=== PATIENT | female | born 1955 | race Caucasian/White ===

== ENCOUNTER → 2017-05-04 | Outpatient (CLI) | payer OTHER ==
[~2017-05-04] MED LIST: ALBUAER3 IN; ALEN70TA55 PO; ALPR0.25 PO; ASCO100076 PO; ASPI81TA27 PO; B-COTAB76 OR; CALCCHW17 OR; CHOL100079 OR
== END | disposition home or self-care (01) ==
LOC: LAB 14:09
PROVIDERS: ATTEND Surgery
DX: Z02.1 Encounter for pre-employment examination (principal)
CPT/HCPCS: 36415; 86706; 86735; 86762; 86765; 86787

== ENCOUNTER → 2018-01-19 | Outpatient (CLI) | payer OTHER, BC ==
[2018-01-19 10:04] LABS: Albumin 3.7 g/dL (3.4-5.0); BUN/Creatinine Ratio 16.7; Bilirubin, Total 0.4 mg/dL (0.2-1.0); Calcium 9.3 mg/dL (8.5-10.1); Potassium 4.1 mmol/L (3.5-5.1); Total Protein 7.3 g/dL (6.4-8.2)
== END | disposition home or self-care (01) ==
LOC: LAB 08:28
PROVIDERS: ATTEND Internal Medicine
DX: J44.9 Chronic obstructive pulmonary disease, unspecified (principal); R79.89 Other specified abnormal findings of blood chemistry
CPT/HCPCS: 36415; 80053; 80061

== ENCOUNTER → 2019-07-11 | Outpatient (CLI) | payer BC ==
[~2019-07-11] MED LIST changes: +ALEN1TAB32 PO; -ALEN70TA55 PO; +ASPI-404 PO; -ASPI81TA27 PO
[2019-07-11 08:36] LABS: Basophils # (auto) 0.1 uL; Basophils % (auto) 1.1 % (0.0-2.0); Eosinophils # (auto) 0.1 uL; Eosinophils % (auto) 2.3 % (0.0-7.0); Hematocrit 42.6 % (36.0-46.0); Hemoglobin 14.7 g/dL (12.2-16.2); Lymphocytes # (auto) 2.1 uL; Lymphocytes % (auto) 38.4 % (10.0-50.0); Mean Corpuscular Hemoglobin 31.3 pg (28.0-32.0); Mean Corpuscular Hgb Conc. 34.5 g/dL (32.0-36.0); Mean Corpuscular Volume 90.9 fL (80.0-100.0); Monocytes # (auto) 0.3 uL; Neutrophils # (auto) 2.9 uL; Neutrophils % (auto) 52.2 % (37.0-80.0); Nucleated Red Blood Cells % 0.1 %; Platelet Count (auto) 262 10^3/uL (140-450); Red Blood Cells 4.69 10^6/uL (4.0-5.20); Red Cell Distribution Width 14.7 % (11.8-14.3); White Blood Cell 5.6 10^3/uL (4.4-10.8)
[2019-07-11 08:42] LABS: Urine Bacteria FEW /hpf (None Seen); Urine Blood 1+ /uL (Negative); Urine Specific Gravity 1.009 (1.001-1.035); Urine WBC 1 /hpf (0 - 5)
[2019-07-11 08:57] LABS: Albumin 3.7 g/dL (3.4-5.0); Calcium 8.8 mg/dL (8.5-10.1); Potassium 3.9 mmol/L (3.5-5.1)
[2019-07-11 09:01] LABS: BUN/Creatinine Ratio 11.6; Bilirubin, Total 0.5 mg/dL (0.2-1.0)
== END | disposition home or self-care (01) ==
LOC: LAB 08:16
PROVIDERS: ATTEND Internal Medicine
DX: J44.9 Chronic obstructive pulmonary disease, unspecified (principal)
CPT/HCPCS: 36415; 80053; 80061; 81001; 84439; 84443; 85025; 85652

== ENCOUNTER → 2020-04-15 | Outpatient (CLI) | payer BC ==
[~2020-04-15] MED LIST changes: -ASPI-404 PO; +ASPI-543 PO
[2020-04-15 15:28] LABS: Basophils # (auto) 0 10 ^3/uL (0-0.2); Basophils % (auto) 0.5 % (0.0-2.0); Eosinophils # (auto) 0.1 10 ^3/uL (0-0.8); Hematocrit 41.8 % (36.0-46.0); Hemoglobin 14.1 g/dL (12.2-16.2); Lymphocytes # (auto) 2.8 10 ^3/uL (0.4-5.4); Lymphocytes % (auto) 44.9 % (10.0-50.0); Mean Corpuscular Hemoglobin 30.8 pg (28.0-32.0); Mean Corpuscular Hgb Conc. 33.7 g/dL (32.0-36.0); Mean Corpuscular Volume 91.6 fL (80.0-100.0); Monocytes # (auto) 0.5 10 ^3/uL (0-1.3); Monocytes % (auto) 7.7 % (0.0-12.0); Neutrophils # (auto) 2.8 10 ^3/uL (1.6-8.6); Neutrophils % (auto) 44.9 % (37.0-80.0); Nucleated Red Blood Cells % 0.1 %; Platelet Count (auto) 269 10^3/uL (140-450); Red Blood Cells 4.56 10^6/uL (4.0-5.20); Red Cell Distribution Width 14.3 % (11.8-14.3); White Blood Cell 6.2 10^3/uL (4.4-10.8)
[2020-04-15 15:36] LABS: Albumin 3.7 g/dL (3.4-5.0); Calcium 8.8 mg/dL (8.5-10.1); Potassium 3.3 mmol/L (3.5-5.1)
[2020-04-15 15:40] LABS: Bilirubin, Total 0.3 mg/dL (0.2-1.0); Total Protein 7.4 g/dL (6.4-8.2)
[2020-04-16 07:06] LABS: Immunoglobulin G, Serum 890 mg/dL (586-1602)
[2020-04-17 09:23] LABS: Hepatitis B Surface Antibody Negative
[2020-04-17 11:37] LABS: Hepatitis B Core IgM Negative; Hepatitis B Core Total AB Negative; Hepatitis B Surface Antigen Negative (Negative); Hepatitis C Antibody Negative (Negative)
== END | disposition home or self-care (01) ==
LOC: LAB 14:44
PROVIDERS: ATTEND Internal Medicine
DX: M79.2 Neuralgia and neuritis, unspecified (principal)
CPT/HCPCS: 36415; 80053; 82607; 82784; 83036; 85025; 86334; 86704; 86705; 86706; 86803; 87340

== ENCOUNTER → 2020-12-25 | Outpatient (CLI) | payer BC ==
[~2020-12-25] MED LIST changes: -ALEN1TAB32 PO; +ALEN70TA74 PO
[2020-12-25 09:57] LABS: Basophils # (auto) 0 10 ^3/uL (0-0.2); Basophils % (auto) 0.5 % (0.0-2.0); Eosinophils # (auto) 0.1 10 ^3/uL (0-0.8); Eosinophils % (auto) 2.1 % (0.0-7.0); Hematocrit 43.4 % (36.0-46.0); Lymphocytes # (auto) 1.9 10 ^3/uL (0.4-5.4); Lymphocytes % (auto) 33.4 % (10.0-50.0); Mean Corpuscular Hemoglobin 31.4 pg (28.0-32.0); Mean Corpuscular Hgb Conc. 34.5 g/dL (32.0-36.0); Monocytes # (auto) 0.4 10 ^3/uL (0-1.3); Monocytes % (auto) 6.7 % (0.0-12.0); Neutrophils # (auto) 3.2 10 ^3/uL (1.6-8.6); Neutrophils % (auto) 57.3 % (37.0-80.0); Platelet Count (auto) 251 10^3/uL (140-450); Red Blood Cells 4.76 10^6/uL (4.0-5.20); Red Cell Distribution Width 14.3 % (11.8-14.3); White Blood Cell 5.6 10^3/uL (4.4-10.8)
[2020-12-25 10:05] LABS: Urine Bacteria NONE SEEN /hpf (None Seen); Urine Blood 1+ /uL (Negative); Urine Specific Gravity 1.012 (1.001-1.035); Urine WBC <1 /hpf (0 - 5)
[2020-12-25 10:44] LABS: Albumin 3.6 g/dL (3.4-5.0); BUN/Creatinine Ratio 16.3; Bilirubin, Total 0.5 mg/dL (0.2-1.0); Calcium 9.5 mg/dL (8.5-10.1); Total Protein 7.1 g/dL (6.4-8.2)
== END | disposition home or self-care (01) ==
LOC: LAB 08:24
PROVIDERS: ATTEND Internal Medicine
DX: J44.9 Chronic obstructive pulmonary disease, unspecified (principal); M81.0 Age-related osteoporosis without current pathological fracture
CPT/HCPCS: 36415; 80053; 80061; 81001; 82306; 84439; 84443; 85025; 85652

== ENCOUNTER 2021-01-07 11:50 | Inpatient (IN) | payer BC ==
[~2021-01-07] VITALS: Ht 157.5 cm; Wt 61.8 kg
[2021-01-07 13:06] LABS: Basophils # (auto) 0 10 ^3/uL (0-0.2); Basophils % (auto) 0.5 % (0.0-2.0); Eosinophils # (auto) 0 10 ^3/uL (0-0.8); Eosinophils % (auto) 0.2 % (0.0-7.0); Hematocrit 43.7 % (36.0-46.0); Lymphocytes # (auto) 1.7 10 ^3/uL (0.4-5.4); Lymphocytes % (auto) 26.9 % (10.0-50.0); Mean Corpuscular Hemoglobin 30.8 pg (28.0-32.0); Mean Corpuscular Hgb Conc. 34.4 g/dL (32.0-36.0); Mean Corpuscular Volume 89.6 fL (80.0-100.0); Monocytes # (auto) 0.4 10 ^3/uL (0-1.3); Monocytes % (auto) 5.7 % (0.0-12.0); Neutrophils # (auto) 4.2 10 ^3/uL (1.6-8.6); Neutrophils % (auto) 66.7 % (37.0-80.0); Nucleated Red Blood Cells % 0.1 %; Platelet Count (auto) 285 10^3/uL (140-450); Red Blood Cells 4.88 10^6/uL (4.0-5.20); White Blood Cell 6.2 10^3/uL (4.4-10.8)
[2021-01-07 13:30] LABS: Albumin 3.8 g/dL (3.4-5.0); Anion Gap 9 (5-15); Blood Urea Nitrogen 14 mg/dL (7-18); Calcium 9.1 mg/dL (8.5-10.1); Carbon Dioxide 22 mmol/L (21-32); Chloride 110 mmol/L (98-107); Glucose 90 mg/dL (74-106); Magnesium 2.7 mg/dL (1.6-2.6); Potassium 3.6 mmol/L (3.5-5.1); Sodium 141 mmol/L (136-145)
[2021-01-07 13:31] LABS: INR 0.99 (0.9-1.15); Partial Thromboplastin Time 31.6 sec (23.0-31.2)
[2021-01-07 13:35] LABS: Alanine Aminotransferase 20 U/L (13-56); Alkaline Phosphatase 70 U/L (45-117); Aspartate Aminotransferase 15 U/L (15-37); BUN/Creatinine Ratio 20.6; Bilirubin, Total 0.4 mg/dL (0.2-1.0); GFR African American 111 mL/min; GFR Non-African American 92 mL/min; Total Protein 7.6 g/dL (6.4-8.2)
[2021-01-07] MEDS ORDERED: ONDANSETRON HCL 4 MG/2 ML VIAL IV PRN (15:30)
[2021-01-07] MEDS ORDERED: NITROGLYCERIN 0.4 MG SL TAB SL PRN (15:30)
[2021-01-07] MEDS ORDERED: ALBUTEROL SULF 2.5 MG/0.5ML(0.5%) NEB SOLN NEB PRN (15:30)
[2021-01-07] MEDS ORDERED: IPRATROPIUM BROM 0.5 MG/2.5ML INH SOL NEB PRN (15:30)
[2021-01-07] MEDS ORDERED: ACETAMINOPHEN 500 MG TAB PO PRN (15:30)
[2021-01-07] MEDS ORDERED: HYDROcodone-ACET 5/325MG TAB PO PRN (15:30)
[2021-01-07] MEDS ORDERED: MORPHINE SULF INJ 2 MG/ML SYRINGE 1ML IV PRN ×2 (15:30)
[2021-01-07 15:40] VITALS: BP 109/46
[2021-01-07 18:40] VITALS: BP 144/62
[2021-01-07 21:24] VITALS: BP 105/62
[2021-01-07] MEDS: ATORVASTATIN 20 MG TAB PO SCH (21:49)
[2021-01-07] MEDS ORDERED: METOPROLOL TARTRATE 25 MG TAB PO SCH (22:00)
[2021-01-07 23:01] LABS: Urine Bacteria NONE SEEN /hpf (None Seen); Urine Blood Negative /uL (Negative); Urine Specific Gravity 1.005 (1.001-1.035); Urine WBC <1 /hpf (0 - 5)
[2021-01-08 04:28] VITALS: BP 103/61
[2021-01-08 08:00] VITALS: BP 114/69
[2021-01-08] MEDS ORDERED: DOBUTamine 1000MCG/ML 100 ML IV ONE (08:45)
[2021-01-08 09:56] LABS: Cholesterol 205 mg/dL (< 200)
[2021-01-08 09:58] LABS: HDL Cholesterol 64 mg/dL (40-59); LDL Cholesterol 122 mg/dL (< 100); Triglycerides 125 mg/dL (< 150)
[2021-01-08] MEDS ORDERED: METOPROLOL TARTRATE 25 MG TAB PO SCH (10:00)
[2021-01-08] MEDS ORDERED: REGADENOSON 0.4 MG/5 ML SYRG IV ONE (10:30)
[2021-01-08 13:00] VITALS: BP 98/60
[2021-01-08] MEDS: FAMOTIDINE 20 MG TAB PO SCH (14:12)
[2021-01-08] MEDS: ASPirin-EC 81 mg tab PO SCH (14:12)
[2021-01-08 16:56] VITALS: BP 114/74
[2021-01-08] MEDS: ATORVASTATIN 20 MG TAB PO SCH (21:30)
[2021-01-08 22:00] VITALS: BP 110/55
[2021-01-09 05:00] VITALS: BP 113/73
[2021-01-09 08:00] VITALS: BP 104/66
[2021-01-09] MEDS: FAMOTIDINE 20 MG TAB PO SCH (09:53)
[2021-01-09] MEDS: ASPirin-EC 81 mg tab PO SCH (09:53)
[2021-01-09 11:18] VITALS: BP 104/66
== END 2021-01-09 12:40 | disposition home or self-care (01) | DRG 313 ==
LOC: EEVIPCON 11:50 → ER 11:50 → TELE 15:27 → TELE-CENTR 18:30
PROVIDERS: ADMIT Nurse Practitioner Acute Care; ATTEND Internal Medicine
DX: R07.89 Other chest pain (principal); G45.9 Transient cerebral ischemic attack, unspecified; I24.9 Acute ischemic heart disease, unspecified; E66.9 Obesity, unspecified; F17.210 Nicotine dependence, cigarettes, uncomplicated; I10 Essential (primary) hypertension; F41.9 Anxiety disorder, unspecified; E78.5 Hyperlipidemia, unspecified; Z20.822 Contact with and (suspected) exposure to COVID-19; J44.9 Chronic obstructive pulmonary disease, unspecified; M81.0 Age-related osteoporosis without current pathological fracture; Z80.8 Family history of malignant neoplasm of other organs or systems; Z82.49 Family history of ischemic heart disease and other diseases of the circulatory system; Z80.3 Family history of malignant neoplasm of breast; Z68.24 Body mass index [BMI] 24.0-24.9, adult
CPT/HCPCS: 36415; 70450; 71045; 78452; 80053; 80061; 81001; 83735; 83880; 84443; 84484; 85025; 85379; 85610; 85730; 86141; 87426; 93005; 93017; 93306; 96365; G0378

== ENCOUNTER → 2022-12-01 | Outpatient (CLI) | payer BC ==
[2022-12-01 07:16] LABS: Basophils # (auto) 0 10 ^3/uL (0-0.2); Basophils % (auto) 0.5 % (0.0-2.0); Eosinophils # (auto) 0.1 10 ^3/uL (0-0.8); Eosinophils % (auto) 2.4 % (0.0-7.0); Hematocrit 44.7 % (36.0-46.0); Lymphocytes # (auto) 1.9 10 ^3/uL (0.4-5.4); Lymphocytes % (auto) 30.9 % (10.0-50.0); Mean Corpuscular Hemoglobin 30.9 pg (28.0-32.0); Mean Corpuscular Hgb Conc. 33.6 g/dL (32.0-36.0); Mean Corpuscular Volume 91.8 fL (80.0-100.0); Monocytes # (auto) 0.5 10 ^3/uL (0-1.3); Monocytes % (auto) 7.3 % (0.0-12.0); Neutrophils # (auto) 3.7 10 ^3/uL (1.6-8.6); Neutrophils % (auto) 58.9 % (37.0-80.0); Nucleated Red Blood Cells % 0.1 %; Red Blood Cells 4.87 10^6/uL (4.0-5.20); Red Cell Distribution Width 14.4 % (11.8-14.3); White Blood Cell 6.2 10^3/uL (4.4-10.8)
[2022-12-01 07:37] LABS: Urine Bacteria NONE SEEN /hpf (None Seen); Urine Blood 1+ /uL (Negative); Urine Specific Gravity 1.004 (1.001-1.035); Urine WBC 1 /hpf (0 - 5)
[2022-12-01 08:05] LABS: Albumin 3.6 g/dL (3.4-5.0); BUN/Creatinine Ratio 16.9; Bilirubin, Total 0.4 mg/dL (0.2-1.0); Calcium 9.1 mg/dL (8.5-10.1)
== END | disposition home or self-care (01) ==
LOC: LAB 06:54
PROVIDERS: ATTEND Internal Medicine
DX: J44.9 Chronic obstructive pulmonary disease, unspecified (principal); E55.9 Vitamin D deficiency, unspecified
CPT/HCPCS: 36415; 80053; 80061; 81001; 82306; 84439; 84443; 85025; 85652

== ENCOUNTER → 2023-04-20 | Outpatient (CLI) | payer BC | END | disposition home or self-care (01) | LOC: XYW 10:27 | PROVIDERS: ATTEND Internal Medicine | DX: R92.8 Other abnormal and inconclusive findings on diagnostic imaging of breast (principal); Z80.3 Family history of malignant neoplasm of breast; N63.10 Unspecified lump in the right breast, unspecified quadrant | CPT/HCPCS: 19083; 76642; 76942 ==

== ENCOUNTER → 2024-07-10 | Outpatient (CLI) | payer BC ==
[~2024-07-10] MED LIST changes: +ALBUTEROL SULF 2.5 MG/0.5ML(0.5%) NEB SOLN ONE
--- NOTE | 2024-07-13 22:02 | DVHNC2 ---
Procedure - July 10, 2024: Pulmonary function test interpretation Moderately severe obstructive ventilatory defect. Significant bronchodilator response. Total lung capacity is within normal limits, 4.21 L, 103% of predicted. Moderate reduction in diffusion capacity, not corrected for patient's hemoglobin. CARLOS BUNN MD Jul 13, 2024 22:02
== END | disposition home or self-care (01) ==
LOC: RT 15:00
PROVIDERS: ATTEND Internal Medicine Pulmonary Disease
DX: J44.9 Chronic obstructive pulmonary disease, unspecified (principal); R06.00 Dyspnea, unspecified; Z87.891 Personal history of nicotine dependence
CPT/HCPCS: 94060; 94727; 94729

== ENCOUNTER → 2024-10-12 | Day surgery (SDC) | payer BC, MEDICARE ==
[2024-10-05 15:43] LABS: Basophils # (auto) 0.1 10 ^3/uL (0-0.2); Basophils % (auto) 0.7 % (0.0-2.0); Eosinophils # (auto) 0.1 10 ^3/uL (0-0.8); Eosinophils % (auto) 1.2 % (0.0-7.0); Hematocrit 40.6 % (36.0-46.0); Hemoglobin 13.8 g/dL (12.2-16.2); Mean Corpuscular Hemoglobin 31.2 pg (28.0-32.0); Mean Corpuscular Volume 91.8 fL (80.0-100.0); Monocytes # (auto) 0.6 10 ^3/uL (0-1.3); Monocytes % (auto) 7.5 % (0.0-12.0); Neutrophils # (auto) 4.1 10 ^3/uL (1.6-8.6); Neutrophils % (auto) 52.6 % (37.0-80.0); Platelet Count (auto) 261 10^3/uL (140-450); Red Blood Cells 4.42 10^6/uL (4.0-5.20); Red Cell Distribution Width 14.2 % (11.8-14.3); White Blood Cell 7.8 10^3/uL (4.4-10.8)
[2024-10-05 16:00] LABS: INR 1.01 (0.9-1.15); Partial Thromboplastin Time 29.3 SEC (24.5-34.5); Prothrombin Time 10.7 sec (9.3-11.8)
[2024-10-05 16:14] LABS: Urine Bacteria FEW /hpf (None Seen); Urine Blood Negative /uL (Negative); Urine Clarity Clear (Clear); Urine Color Yellow (Yellow); Urine Protein, UAD Negative (Negative); Urine Specific Gravity 1.015 (1.001-1.035); Urine Squamous Epithelial Cell FEW /hpf (<5); Urine Urobilinogen Normal (Negative); Urine WBC 1 /hpf (0 - 5)
[2024-10-05 16:25] LABS: Alanine Aminotransferase 15 U/L (7-40); Albumin 4.6 g/dL (3.2-4.8); Alkaline Phosphatase 80 U/L (46-116); Anion Gap 5 (5-15); BUN/Creatinine Ratio 13.1 (10.0-20.0); Blood Urea Nitrogen 13 mg/dL (9-23); Calcium 10.2 mg/dL (8.7-10.4); Carbon Dioxide 29 mmol/L (20-31); Glucose 91 mg/dL (74-106); Potassium 3.6 mmol/L (3.5-5.1); Sodium 142 mmol/L (136-145); Total Protein 6.7 g/dL (5.7-8.2)
[2024-10-05 16:27] LABS: Aspartate Aminotransferase 12 U/L (13-40); Bilirubin, Total 0.3 mg/dL (0.2-1.0); Chloride 108 mmol/L (98-107)
[~2024-10-12] VITALS: Ht 157.5 cm; Wt 58.1 kg
[~2024-10-12] MED LIST changes: -ALBUTEROL SULF 2.5 MG/0.5ML(0.5%) NEB SOLN ONE; -ALEN70TA74 PO; -ASPI-543 PO; +ATOR20TA50 PO; +ONDANSETRON HCL 4 MG/2 ML VIAL ONE; +PROPOFOL 10 MG/ML 20 ML IV ONE
[2024-10-12 10:22] VITALS: PULSE 86; RESP 24; TEMP 97.6; O2SAT 98
--- NOTE | 2024-10-12 10:26 | DVHOP2 ---
Operative Report DATE OF OPERATION: 10/12/24 PROCEDURE: Colonoscopy with cold biopsy polypectomy. PREOPERATIVE INDICATION: The patient is a 69 -year-old female undergoing colonoscopy for surveillance with personal history of colon polyps POSTOPERATIVE DIAGNOSES: 1. There was a 2 mm benign-appearing transverse colon polyp that was seen and removed by cold biopsy forceps 2. There were several tiny diminutive benign-appearing rectosigmoid polyps that were seen and removed by cold biopsy forceps 3. Patient had moderate tortuosity of the colon otherwise grossly normal exami nation up to the cecum PROCEDURE PERFORMED BY: Heraclio Moss M.D. SCOPE: Olympus videocolonoscope. ASA CLASS: 3. PREOPERATIVE MEDICATIONS: MAC junior, Dr. Casey PROCEDURE IN DETAIL: After obtaining an informed consent, the patient was placed on left lateral decubitus position. She was then sedated with the above medications. A rectal examination was performed that was normal. The colonoscope was then passed through the anus into the rectosigmoid and through the descending, transverse, and ascending colon up to the cecum with visualization of the appendiceal orifice, base of the cecum and the ileocecal valve. The colonoscope was then withdrawn. No masses or colitis was noted The patient had a 1-2 mm benign-appearing transverse colon polyp that was seen and removed by cold biopsy forceps Patient had moderate tortuosity of the colon. There were several small tiny diminutive hyperplastic type rectosigmoid polyps Multiple polyps were removed by cold biopsy forceps. On retroflexion she had trace internal hemorrhoids. The patient tolerated the procedure well without difficulty. WITHDRAWAL TIME: 11 minutes QUALITY OF THE PREP: [place] Bowel Prep score: 9. COMPLICATIONS : None SPECIMENS: Transverse colon polyp Rectosigmoid polyps DISPOSITION: Stable D/C to home PLAN: 1. Repeat colonoscopy base on biopsy result likely in five years 2. Resume GI soft diet advance as tolerated 3. Outpatient follow up with me in 4-6 weeks to review results and discuss further management HERACLIO MOSS MD Oct 12, 2024 10:26
[2024-10-12 10:42] VITALS: BP 115/59; PULSE 65; RESP 14; O2SAT 96
== END | disposition home or self-care (01) ==
LOC: GI 07:45
PROVIDERS: ATTEND Internal Medicine Gastroenterology
DX: Z12.11 Encounter for screening for malignant neoplasm of colon (principal); D12.3 Benign neoplasm of transverse colon; K62.1 Rectal polyp; K64.8 Other hemorrhoids; Z86.0100 Personal history of colon polyps, unspecified; Z98.42 Cataract extraction status, left eye; J44.9 Chronic obstructive pulmonary disease, unspecified; Z79.899 Other long term (current) drug therapy
CPT/HCPCS: 36415; 45380; 80053; 81001; 85025; 85610; 85730; 88305; J2405; J2704; J7030

== ENCOUNTER → 2025-02-07 | Outpatient (CLI) | payer BC, MEDICARE ==
[~2025-02-07] MED LIST changes: -ONDANSETRON HCL 4 MG/2 ML VIAL ONE; -PROPOFOL 10 MG/ML 20 ML IV ONE
[2025-02-07 08:02] LABS: Urine Bacteria None Seen /hpf (None Seen)
[2025-02-07 08:09] LABS: Basophils # (auto) 0 10 ^3/uL (0-0.2); Basophils % (auto) 0.7 % (0.0-2.0); Eosinophils # (auto) 0.1 10 ^3/uL (0-0.8); Eosinophils % (auto) 1.9 % (0.0-7.0); Hematocrit 40.2 % (36.0-46.0); Hemoglobin 13.6 g/dL (12.2-16.2); Lymphocytes # (auto) 1.7 10 ^3/uL (0.4-5.4); Lymphocytes % (auto) 30.1 % (10.0-50.0); Mean Corpuscular Hemoglobin 30.6 pg (28.0-32.0); Mean Corpuscular Hgb Conc. 33.7 g/dL (32.0-36.0); Mean Corpuscular Volume 90.7 fL (80.0-100.0); Monocytes # (auto) 0.4 10 ^3/uL (0-1.3); Monocytes % (auto) 7.3 % (0.0-12.0); Neutrophils # (auto) 3.5 10 ^3/uL (1.6-8.6); Platelet Count (auto) 260 10^3/uL (140-450); Red Blood Cells 4.43 10^6/uL (4.0-5.20); Red Cell Distribution Width 14.5 % (11.8-14.3); White Blood Cell 5.8 10^3/uL (4.4-10.8)
[2025-02-07 08:36] LABS: Urine Blood 1+ /uL (Negative); Urine Clarity Clear (Clear); Urine Color Light-Yellow (Yellow); Urine Protein, UAD Negative (Negative); Urine Specific Gravity 1.014 (1.001-1.035); Urine Squamous Epithelial Cell FEW /hpf (<5); Urine Urobilinogen Normal (Negative); Urine WBC 8 /HPF (0-5)
[2025-02-07 08:58] LABS: Erythrocyte Sedimentation Rate 7 mm/hr (0-20)
[2025-02-07 09:17] LABS: Alanine Aminotransferase 21 U/L (7-40); Alkaline Phosphatase 73 U/L (46-116); Anion Gap 7 (5-15); Aspartate Aminotransferase 22 U/L (13-40); BUN/Creatinine Ratio 15.6 (10.0-20.0); Blood Urea Nitrogen 14 mg/dL (9-23); Carbon Dioxide 27 mmol/L (20-31); Glucose 86 mg/dL (74-106); LDL Cholesterol 80 mg/dL (< 100); Potassium 4.2 mmol/L (3.5-5.1); Sodium 143 mmol/L (136-145); Total Protein 6.9 g/dL (5.7-8.2); Triglycerides 80 mg/dL (< 150)
[2025-02-07 09:18] LABS: Albumin 4.7 g/dL (3.2-4.8); Bilirubin, Total 0.6 mg/dL (0.2-1.0); Cholesterol 161 mg/dL (< 200)
[2025-02-07 09:19] LABS: Chloride 109 mmol/L (98-107); HDL Cholesterol 71 mg/dL (40-59)
== END | disposition home or self-care (01) ==
LOC: LAB 07:49
PROVIDERS: ATTEND Internal Medicine
DX: J44.9 Chronic obstructive pulmonary disease, unspecified (principal); M85.80 Other specified disorders of bone density and structure, unspecified site; Z79.899 Other long term (current) drug therapy
CPT/HCPCS: 36415; 80053; 80061; 81001; 82306; 84439; 84443; 85025; 85652

== ENCOUNTER → 2025-05-29 | Outpatient (CLI) | payer BC, MEDICARE ==
[2025-05-29 15:18] LABS: Alanine Aminotransferase 27 U/L (7-40); Albumin 4.7 g/dL (3.2-4.8); Alkaline Phosphatase 72 U/L (46-116); Anion Gap 6 (5-15); BUN/Creatinine Ratio 10.2 (10.0-20.0); Calcium 9.5 mg/dL (8.7-10.4); Carbon Dioxide 28 mmol/L (20-31); Glucose 85 mg/dL (74-106); Potassium 4.0 mmol/L (3.5-5.1); Sodium 143 mmol/L (136-145); Total Protein 7.0 g/dL (5.7-8.2)
[2025-05-29 15:19] LABS: Bilirubin, Total 0.5 mg/dL (0.2-1.0)
[2025-05-29 15:21] LABS: Blood Urea Nitrogen 9 mg/dL (9-23); Chloride 109 mmol/L (98-107)
== END | disposition home or self-care (01) ==
LOC: LAB 14:37
PROVIDERS: ATTEND Urology
DX: R31.21 Asymptomatic microscopic hematuria (principal)
CPT/HCPCS: 36415; 80053

== ENCOUNTER 2025-06-18 08:39 | Outpatient (CLI) | payer BC, MEDICARE ==
[2025-06-18 09:40] LABS: Blood Urea Nitrogen 11.0 mg/dL (9-23)
== END 2025-06-18 17:00 | disposition home or self-care (01) ==
LOC: LAB 08:39
PROVIDERS: ATTEND Urology
DX: N28.1 Cyst of kidney, acquired (principal); R31.9 Hematuria, unspecified
CPT/HCPCS: 36415; 82565; 84520